=== PATIENT | male | born 1960 | race Caucasian/White ===

== ENCOUNTER 2016-05-25 14:18 | Emergency (ER) | payer BC, OTHER ==
[2016-05-25 14:34] VITALS: BP 135/86
[2016-05-25] MEDS ORDERED: Lidocaine 2% PF* 5 ML VIAL ONE (15:00)
[2016-05-25] MEDS ORDERED: Tetan/Diph/Pertus SYR(Tdap)* 0.5 ML SYR(BOOSTRIX) use SYR IM ONE (15:03)
--- NOTE | 2016-05-25 15:27 | RAD ---
HISTORY: Second digit laceration, and COMPARISONS: None VIEWS: 3, Frontal, lateral, and oblique views of the second digit of the right hand FINDINGS: BONE DENSITY: Normal. BONES: There is no displaced fracture. JOINTS: There is advanced osteoarthritis of the second DIP joint. ALIGNMENT: There is no dislocation. SOFT TISSUES: There is soft tissue irregularity consistent with history of laceration. OTHER FINDINGS: None. IMPRESSION: OSTEOARTHRITIS. NO ACUTE OSSEOUS INJURY. IF SYMPTOMS PERSIST, RECOMMEND REPEAT IMAGING.
--- NOTE | 2016-05-25 15:37 | UC ---
Laceration HPI - HPI Summary HPI Summary: RIGHT INDEX FINGER LACERATION, WAS PUTTING ON NEW SUPERINTENDENT PRESSURE BLADE AND WRENCH SLIPPED, CUT RIGHT INDEX FINGER ON (NONMOVING) BLADE. LAST TETANUS SHOT TEN YEARS AGO. NO OTHER KNOWN INJURIES. 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 Laceration Location: Finger - RIGHT SECOND Mechanism Of Injury: Sharp Trauma Onset/Duration: Sudden Onset, Lasting Hours, Still Present Severity: Mild Aggravating Factors: Position, Movement Related History: Dominant Hand Right - Allergies/Home Medications Allergies/Adverse Reactions: Allergies Allergy/AdvReac Type Severity Reaction Status Date / Time No Known Allergies Allergy Verified 05/25/16 14:28 Home Medications: Home Medications Benztropine TAB* [Cogentin TAB*] 4 mg PO TID 05/25/16 [History Confirmed ] Carbidopa/Levodop 25/100 MG(*) [Sinemet 25/100 TAB(*)] 1.5 tab PO BID 05/25/16 [ History Confirmed 05/25/16] Melatonin 3 mg PO BEDTIME 05/25/16 [History Confirmed 05/25/16] Selegiline TAB* [Eldepryl TAB*] 5 mg PO BID 05/25/16 [History Confirmed 05/25/16 ] Simvastatin [Zocor 40 MG (NF)] 40 mg PO QPM 05/25/16 [History Confirmed 05/25/16 ] rOPINIRole TAB* [Requip TAB*] 3 mg PO TID 05/25/16 [History Confirmed 05/25/16] PMH/Surg Hx/FS Hx/Imm Hx Previously Healthy: Yes - Surgical History Surgical History: None - Family History Known Family History: Negative: Blood Disorder - Social History Occupation: Disabled Lives: With Family Alcohol Use: Occasionally Substance Use Type: None Smoking Status (MU): Former Smoker When Did the Patient Quit Smoking/Using Tobacco: 15 years ago - Immunization History Most Recent Influenza Vaccination: none Most Recent Tetanus Shot: >5 yrs, thinks maybe 10 years ago Review of Systems Constitutional: Negative Skin: Other - LACERATION RIGHT SECOND FINGER Eyes: Negative ENT: Negative Respiratory: Negative Cardiovascular: Negative Gastrointestinal: Negative Genitourinary: Negative Motor: Negative Neurovascular: Negative Musculoskeletal: Negative Neurological: Negative Psychological: Negative All Other Systems Reviewed And Are Negative: Yes Physical Exam Triage Information Reviewed: Yes Appearance: Well-Appearing, No Pain Distress, Well-Nourished Vital Signs: Initial Vital Signs Temp 98.2 F 05/25/16 14:29 Pulse 87 05/25/16 14:29 Resp 16 05/25/16 14:29 BP 135/86 05/25/16 14:29 Pulse Ox 98 05/25/16 14:29 Vital Signs Reviewed: Yes Eye Exam: Normal ENT Exam: Normal Dental Exam: Normal Neck exam: Normal Respiratory Exam: Normal Respiratory: Positive: Chest non-tender, Lungs clear, Normal breath sounds, No respiratory distress, No accessory muscle use Cardiovascular Exam: Normal Cardiovascular: Positive: RRR, No Murmur, Pulses Normal Musculoskeletal Exam: Normal Musculoskeletal: Positive: Strength Intact, ROM Intact, No Edema Neurological Exam: Normal Psychological Exam: Normal Psychological: Positive: Normal Response To Family Skin: Positive: Other - LACERATION RIGHT SECOND FINGER Laceration Repair - Laceration Repair 1 Description: Linear Laceration Size After Repair: Length (cm) - 5, Width (mm) - 10, Depth (mm) - 8 Type Injection: Digital Anesthesia Used: 2.0% Lido Cleansing Completed Via Routine Prep: Yes Irrigation With Pressure Irrigation Device: Yes Closure Material: Sutures - 7 X 4-0 PROLENE Suture Of: Skin Suture Type: Prolene - 7 X 4-0 PROLENE Laceration Course/Dx - Differential Dx - Laceration/Wound Differental Diagnoses: Laceration Provider Diagnoses: RIGHT SECOND FINGER LACERATION. TETANUS PROPHYLAXIS Discharge - Discharge Plan Condition: Stable Disposition: HOME Patient Education Materials: Finger Laceration (ED) Referrals: Cedric yT MD [Primary Care Provider] - Additional Instructions: (SEVEN SUTURES) PLEASE RETURN IN TEN DAYS TO HAVE YOUR SUTURES REMOVED IN TEN DAYS. PLEASE RETURN SOONER IF YOU NOTICE ANY FEVERS, PAIN REDNESS OR DISCHARGE FROM WOUND BEGINNING TWO TO THREE DAYS FROM NOW.
== END 2016-05-25 15:45 | disposition home or self-care (01) ==
LOC: UCEAST 14:18
DX: S61.210A Laceration without foreign body of right index finger without damage to nail, initial encounter (principal); W26.8XXA Contact with other sharp object(s), not elsewhere classified, initial encounter; Y93.89 Activity, other specified; Y92.9 Unspecified place or not applicable; Z23 Encounter for immunization; Z87.891 Personal history of nicotine dependence
CPT/HCPCS: 12002; 73140; 90471; 90715; 99212; G0463

== ENCOUNTER 2016-06-04 11:35 | Emergency (ER) | payer BC ==
[2016-06-04 12:50] VITALS: BP 126/83
--- NOTE | 2016-06-04 12:54 | UC ---
Skin Complaint HPI - HPI Summary HPI Summary: here for suture removal from right index finger, sutures placed 05/25/16 - History of Current Complaint Chief Complaint: UCLaceration Time Seen by Provider: 06/04/16 12:49 Stated Complaint: STITCHES REMOVAL Hx Obtained From: Patient Onset/Duration: Sudden Onset, Lasting Days, Still Present Timing: Constant Onset Severity: Moderate Current Severity: None Pain Intensity: 0 Pain Scale Used: 0-10 Numeric Location: Discrete - right index finger Aggravating: Nothing Alleviating: Nothing Associated Signs & Symptoms: Positive: Negative - Allergy/Home Medications Allergies/Adverse Reactions: Allergies Allergy/AdvReac Type Severity Reaction Status Date / Time No Known Allergies Allergy Verified 05/25/16 14:28 Review of Systems Constitutional: Negative Skin: Negative Eyes: Negative ENT: Negative Respiratory: Negative Cardiovascular: Negative Gastrointestinal: Negative Genitourinary: Negative Motor: Negative Neurovascular: Negative Musculoskeletal: Negative Neurological: Negative Psychological: Negative All Other Systems Reviewed And Are Negative: Yes PMH/Surg Hx/FS Hx/Imm Hx Previously Healthy: Yes - parkinsons - Surgical History Surgical History: None - Family History Known Family History: Positive: None Negative: Blood Disorder Family History: no reported issues in family lineage - Social History Occupation: Employed Full-time Lives: With Family Alcohol Use: Occasionally Substance Use Type: None Smoking Status (MU): Former Smoker When Did the Patient Quit Smoking/Using Tobacco: 15 years ago - Immunization History Most Recent Influenza Vaccination: none Most Recent Tetanus Shot: 05/25/16 Physical Exam Triage Information Reviewed: Yes Appearance: Well-Appearing, No Pain Distress, Well-Nourished Vital Signs: Initial Vital Signs Temp 97.8 F 06/04/16 12:48 Pulse 66 06/04/16 12:48 Resp 20 06/04/16 12:48 BP 126/83 06/04/16 12:48 Pulse Ox 99 06/04/16 12:48 Vital Signs Reviewed: Yes Eye Exam: Normal Eyes: Positive: Conjunctiva Clear ENT Exam: Normal ENT: Positive: Normal ENT inspection, Hearing grossly normal, TMs normal. Negative: Nasal congestion, Nasal drainage, Trismus, Muffled/hoarse voice Dental Exam: Normal Neck exam: Normal Neck: Positive: Supple, Nontender Respiratory Exam: Normal Respiratory: Positive: Chest non-tender, No respiratory distress, No accessory muscle use Cardiovascular Exam: Normal Cardiovascular: Positive: RRR, No Murmur, Pulses Normal, Brisk Capillary Refill Musculoskeletal Exam: Normal Musculoskeletal: Positive: Strength Intact, ROM Intact, No Edema Neurological Exam: Normal Neurological: Positive: Alert, Muscle Tone Normal Psychological Exam: Normal Skin Exam: Normal Skin: Positive: Other - healing wound right index finger Re-Evaluation - Re-Evaluation First Eval Change: Improved - sutures removed patient tolerated well , steri strips and bandage applied Course/Dx - Course Course Of Treatment: steri care, splint for 2 days, soap and water wash follow with pcp prn - Differential Diagnoses - Skin Complaint Differential Diagnoses: Cellulitis, Local Allergic Reaction, Other - healing wound - Diagnoses Provider Diagnoses: suture removal right index finger , healing wound Discharge - Discharge Plan Condition: Stable Disposition: HOME Patient Education Materials: Stitches Removal (ED), Steristrips (ED) Referrals: Cedric Ty MD [Primary Care Provider] - If Needed
[2016-06-04] MEDS ORDERED: Benzoin Compound STICK TOPICAL ONE (12:59)
== END 2016-06-04 14:10 | disposition home or self-care (01) ==
LOC: UCEAST 11:35
DX: S61.210D Laceration without foreign body of right index finger without damage to nail, subsequent encounter (principal); W45.8XXD Other foreign body or object entering through skin, subsequent encounter; G20 Parkinson's disease; Z87.891 Personal history of nicotine dependence

== ENCOUNTER 2021-11-06 05:39 | Inpatient (IN) ==
[2021-11-06] MEDS ORDERED: Lactated Ringers 1000 ml BAG 1,000 ML IV SCH (06:00)
[2021-11-06] MEDS ORDERED: Buffered Lidocaine 1% SYRIN 1 ml INTRADERM ONE (06:00)
[2021-11-06] MEDS ORDERED: ceFAZolin 2 GM in NS PREMIX 2 GM/100 ML BAG IVPB ONE (06:02)
[2021-11-06] MEDS ORDERED: Ondansetron 4 mg VIAL 2 MG/ML 2 ml VIAL ONE (06:43)
[2021-11-06] MEDS ORDERED: Lidocaine 2% PF 5 ML VIAL ONE (06:43)
[2021-11-06] MEDS ORDERED: Dexamethasone IV 4 MG/ML VIAL 1 ml VIAL ONE (06:43)
[2021-11-06] MEDS ORDERED: Rocuronium 50 mg VIAL 10 mg/ml 5 ml VIAL (50 mg) ONE ×3 (06:43→08:49)
[2021-11-06] MEDS ORDERED: Propofol 10 MG/ML 20 ML BTL ONE (06:43)
[2021-11-06] MEDS ORDERED: Midazolam 2 mg/2 ml VIAL 1 mg/ml 2 ml VIAL (2 mg) ONE (06:44)
[2021-11-06] MEDS ORDERED: fentaNYL 250 mcg/5 ml 50 MCG/ML 5 ml VIAL (250 MCG) ONE ×2 (06:44→06:51)
[2021-11-06] MEDS ORDERED: Acetaminophen IV 1 GM/100ML 1,000 MG/100 ML BAG IV ONE (06:44)
[2021-11-06] MEDS ORDERED: Lidocaine 1% w EPI 1:200,000 SDV 30 ML VIAL ONE (07:04)
[2021-11-06] MEDS ORDERED: Gelfoam Sponge SIZE 100 SPONGE ONE (07:05)
[2021-11-06] MEDS ORDERED: Thrombin 5,000 UNITS 1 APPLIC KIT - topical use - TOPICAL ONE (07:05)
[2021-11-06] MEDS ORDERED: ceFAZolin VIAL VIAL ONE (07:05)
[2021-11-06] MEDS ORDERED: Ketamine HCL 50 mg/ml 10 ml VIAL (500 MG) ONE (07:52)
[2021-11-06] MEDS ORDERED: Sterile Water for Inj 10 ML ONE (08:22)
[2021-11-06] MEDS ORDERED: Naloxone 0.4 mg VIAL 0.4 mg/ml 1 ml VIAL IV PRN (08:31)
[2021-11-06] MEDS ORDERED: Ondansetron 4 mg VIAL 2 MG/ML 2 ml VIAL IV PRN ×2 (08:31→10:40)
[2021-11-06] MEDS ORDERED: Sugammadex 500 MG/5 ML 5 ml VIAL IV PUSH ONE (10:17)
[2021-11-06] MEDS ORDERED: Morphine 2 MG/ML SYRINGE IV PRN (10:47)
[2021-11-06] MEDS ORDERED: Senna TAB 8.6 mg TAB PO PRN (10:47)
[2021-11-06] MEDS ORDERED: Morphine 4 MG/ML VIAL (1 ml) ONE (10:59)
[2021-11-06] MEDS: Morphine 2 MG/ML SYRINGE IV PRN ×4 (11:08→12:04)
[2021-11-06] MEDS: Lactated Ringers 1000 ml BAG 1,000 ML IV SCH (12:58)
[2021-11-06] MEDS ORDERED: Carbidopa/Levodop 25/100 MG TAB PO SCH (13:00)
[2021-11-06] MEDS: Carbidopa/Levodop 25/100 MG TAB PO SCH ×2 (17:09→22:25)
[2021-11-07] MEDS: Lactated Ringers 1000 ml BAG 1,000 ML IV SCH (03:09)
[2021-11-07] MEDS: Carbidopa/Levodop 25/100 MG TAB PO SCH ×5 (05:07→21:54)
[2021-11-08] MEDS: Carbidopa/Levodop 25/100 MG TAB PO SCH ×2 (05:49→09:34)
[2021-11-08 08:55] VITALS: BP 109/71
== END 2021-11-08 10:36 | disposition home or self-care (01) | DRG 304 ==
LOC: AA 05:39 → SSU 12:40
PROVIDERS: ADMIT Neurological Surgery; ATTEND Neurological Surgery
PROC: O.NEPLF (2021-11-06 07:30)

== ENCOUNTER 2023-05-18 05:36 | Observation (INO) ==
[2023-05-18] MEDS ORDERED: Scopolamine 1 mg/72hr PATCH ONE (06:05)
[2023-05-18] MEDS ORDERED: ceFAZolin 2 GM PREMIX 2 GM/50 ML BAG ONE (06:05)
[2023-05-18] MEDS ORDERED: Chlorhexidine MOUTHWASH 0.12% 15 ML UDC ONE (06:05)
[2023-05-18] MEDS: Scopolamine 1 mg/72hr PATCH TRANSDERM ONE (06:22)
[2023-05-18] MEDS: Lactated Ringers 1000 ml BAG 1,000 ML IV SCH ×2 (06:23→12:05)
[2023-05-18] MEDS ORDERED: Lidocaine 2% PF 5 ML VIAL ONE (06:51)
[2023-05-18] MEDS ORDERED: Propofol 10 MG/ML 20 ML BTL ONE (06:54)
[2023-05-18] MEDS ORDERED: Rocuronium 50 mg VIAL 10 mg/ml 5 ml VIAL (50 mg) ONE (06:54)
[2023-05-18] MEDS ORDERED: fentaNYL 250 mcg/5 ml 50 MCG/ML 5 ml VIAL (250 MCG) ONE (06:54)
[2023-05-18] MEDS ORDERED: Midazolam 2 mg/2 ml VIAL 1 mg/ml 2 ml VIAL (2 mg) ONE (06:54)
[2023-05-18 06:55] LABS: Rapid COVID-19 Molecular Undetected (Undetected)
[2023-05-18] MEDS ORDERED: ceFAZolin VIAL VIAL ONE (07:23)
[2023-05-18] MEDS ORDERED: Gelfoam Sponge SIZE 100 SPONGE ONE (07:23)
[2023-05-18] MEDS ORDERED: Lidocaine 1% w EPI 1:200,000 SDV 30 ML VIAL ONE (07:23)
[2023-05-18] MEDS ORDERED: Thrombin 5,000 UNITS 1 APPLIC KIT - topical use - TOPICAL ONE (07:23)
[2023-05-18] MEDS ORDERED: Dexamethasone IV 4 MG/ML VIAL 1 ml VIAL ONE (07:53)
[2023-05-18] MEDS ORDERED: Ondansetron 4 mg VIAL 2 MG/ML 2 ml VIAL ONE (07:53)
[2023-05-18] MEDS ORDERED: Morphine 2 MG/ML SYRINGE IV PRN (09:13)
[2023-05-18] MEDS ORDERED: Phenol 1.4% Throat Spray BTL MT PRN (09:13)
[2023-05-18] MEDS ORDERED: Senna TAB 8.6 mg TAB PO PRN (09:13)
[2023-05-18] MEDS ORDERED: Calcium Carb (TUMS) 500 mg CHEW TAB PO PRN (09:13)
[2023-05-18] MEDS ORDERED: Benzocaine/Menthol LOZ MT PRN (09:13)
[2023-05-18] MEDS ORDERED: Ondansetron 4 mg VIAL 2 MG/ML 2 ml VIAL IV PRN ×2 (09:13→09:33)
[2023-05-18] MEDS ORDERED: Dextran 70/Hypromellose Tears Eye Drops 15 ml BTL (for Artificials Tears) BOTH EYES PRN (09:13)
[2023-05-18] MEDS ORDERED: Naloxone 0.4 mg VIAL 0.4 mg/ml 1 ml VIAL IV PRN (09:33)
[2023-05-18] MEDS ORDERED: fentaNYL 100 mcg/2 ml 50 MCG/ML VIAL ONE (09:38)
[2023-05-18] MEDS: fentaNYL 100 mcg/2 ml 50 MCG/ML VIAL IV PRN (09:42)
[2023-05-18] MEDS: Carbidopa/Levodop 25/100 MG TAB PO SCH ×2 (09:59→21:25)
[2023-05-18] MEDS: HYDROcodone/ACETAMIN 5/325 mg TAB PO PRN (18:28)
[2023-05-18] MEDS: Buffered Lidocaine 1% SYRIN 1 ml INTRADERM ONE (19:36)
[2023-05-18] MEDS ORDERED: ROPINIROLE 12 MG PO SCH (21:00)
[2023-05-19 06:09] VITALS: BP 144/86
[2023-05-19] MEDS: HYDROcodone/ACETAMIN 5/325 mg TAB PO PRN (08:02)
== END 2023-05-19 10:10 | disposition home or self-care (01) ==
LOC: OR 05:36 → SSU 05:36
PROVIDERS: ADMIT Neurological Surgery; ATTEND Neurological Surgery

== ENCOUNTER 2023-11-30 09:24 | Observation (INO) ==
[~2023-11-30 09:24] MED LIST: HYDROmorphone 1 MG/1 ML SYRINGE IV PRN; Naloxone 0.4 mg VIAL 0.4 mg/ml 1 ml VIAL IV PRN
[2023-11-30] MEDS ORDERED: ceFAZolin 2 GM PREMIX 2 GM/50 ML BAG ONE (09:52)
[2023-11-30] MEDS: Buffered Lidocaine 1% SYRIN 1 ml INTRADERM ONE (10:19)
[2023-11-30] MEDS ORDERED: fentaNYL 100 mcg/2 ml 50 MCG/ML VIAL ONE (10:20)
[2023-11-30] MEDS ORDERED: Midazolam 2 mg/2 ml VIAL 1 mg/ml 2 ml VIAL (2 mg) ONE (10:20)
[2023-11-30] MEDS ORDERED: Lidocaine 2% PF 5 ML VIAL ONE (10:20)
[2023-11-30] MEDS: Lactated Ringers 1000 ml BAG 1,000 ML IV SCH ×2 (10:20→22:07)
[2023-11-30] MEDS ORDERED: Rocuronium 50 mg VIAL 10 mg/ml 5 ml VIAL (50 mg) ONE ×3 (10:20→15:39)
[2023-11-30] MEDS ORDERED: Propofol 10 MG/ML 20 ML BTL ONE (10:21)
[2023-11-30] MEDS ORDERED: HYDROmorphone 0.5 MG/0.5 ML SYRINGE ONE ×2 (10:41→12:25)
[2023-11-30] MEDS: HYDROmorphone 0.5 MG/0.5 ML SYRINGE IV SLOW PU PRN (10:47)
[2023-11-30] MEDS ORDERED: Lidocaine 1% w EPI 1:100,000 MDV 20 ML VIAL ONE (12:15)
[2023-11-30] MEDS ORDERED: Thrombin 5,000 UNITS 1 APPLIC KIT - topical use - TOPICAL ONE (12:16)
[2023-11-30] MEDS ORDERED: ceFAZolin VIAL VIAL ONE (12:16)
[2023-11-30] MEDS ORDERED: HYDROmorphone 1 MG/1 ML SYRINGE ONE (12:22)
[2023-11-30] MEDS ORDERED: Dexamethasone IV 4 MG/ML VIAL 1 ml VIAL ONE (13:29)
[2023-11-30] MEDS ORDERED: Ondansetron 4 mg VIAL 2 MG/ML 2 ml VIAL ONE (13:29)
[2023-11-30] MEDS ORDERED: Acetaminophen IV 1 GM/100ML 1,000 MG/100 ML BAG IV ONE (13:30)
[2023-11-30] MEDS ORDERED: Phenylephrine 40 mcg/mL 10mL (400mcg) SYRINGE ONE (14:37)
[2023-11-30] MEDS ORDERED: Ondansetron 4 mg VIAL 2 MG/ML 2 ml VIAL IV PRN (16:15)
[2023-11-30] MEDS ORDERED: Morphine 2 MG/ML SYRINGE IV PRN (16:15)
[2023-11-30] MEDS ORDERED: Senna TAB 8.6 mg TAB PO PRN (16:15)
[2023-11-30] MEDS ORDERED: Benzocaine/Menthol LOZ MT PRN (16:15)
[2023-11-30] MEDS ORDERED: Calcium Carb (TUMS) 500 mg CHEW TAB PO PRN (16:15)
[2023-11-30] MEDS ORDERED: Phenol 1.4% Throat Spray BTL MT PRN (16:15)
[2023-11-30] MEDS ORDERED: Dextran 70/Hypromellose Tears Eye Drops 15 ml BTL (for Artificials Tears) BOTH EYES PRN (16:15)
[2023-11-30 19:03] LABS: Rapid COVID-19 Molecular Undetected (Undetected)
[2023-11-30] MEDS: Carbidopa/Levodop 25/100 MG TAB PO SCH (22:07)
[2023-12-01] MEDS: Carbidopa/Levodop 25/100 MG TAB PO SCH (00:59)
[2023-12-01] MEDS: CMC:Meloxicam 7.5 mg TAB (NF) PO SCH (08:49)
[2023-12-02] MEDS: HYDROcodone/ACETAMIN 5/325 mg TAB PO PRN (09:05)
[2023-12-02 09:59] VITALS: BP 109/71
== END 2023-12-02 10:39 | disposition home or self-care (01) ==
LOC: SSU 09:24 → OR 09:24
PROVIDERS: ADMIT Neurological Surgery; ATTEND Neurological Surgery